=== PATIENT | female | born 1975 | race Caucasian/White ===

== ENCOUNTER 2016-12-01 15:28 | Emergency (ER) | payer SELFPAY ==
[~2016-12-01] VITALS: Ht 157.5 cm; Wt 97.3 kg
[2016-12-01] MEDS ORDERED: SODIUM CHLORIDE FLUSH 10ML SYR IVF ONE (16:00)
[2016-12-01] MEDS ORDERED: ASPIRIN 81 MG TABLET CHEW PO ONE (16:00)
[2016-12-01] MEDS ORDERED: ASPIRIN 81 MG TABLET CHEW ONE (16:15)
[2016-12-01 16:16] LABS: BLOOD UREA NITROGEN 14 mg/dL (7-18)
[2016-12-01 16:23] VITALS: BP 126/77
[2016-12-01 16:29] LABS: IS PT STATUS REG ER OR PRE ER? YES
== END 2016-12-01 17:21 | disposition home or self-care (01) ==
LOC: EDBD 15:28 → ED 17:03
DX: R07.89 Other chest pain (principal)
CPT/HCPCS: 36415; 71020; 80048; 82040; 84484; 85025; 93005; 99285